=== PATIENT | female | born 1955 | race Caucasian/White ===

== ENCOUNTER → 2020-11-06 | Outpatient (CLI) | payer OTHER ==
--- NOTE | 2020-11-06 16:07 | RAD ---
EXAM: Bilateral knees, 3 views. HISTORY: Pain. COMPARISON: None. FINDINGS: 3 views of both knees are obtained. There is severe bilateral medial compartment joint spac e narrowing with subchondral sclerosis, subchondral cyst formation and marginal spurring. There is bi lateral genu varus. There is mild bilateral lateral and patellofemoral compartment spurring. There ar e small bilateral knee effusions. IMPRESSION: 1. Severe medial compartment predominant osteoarthritis of both knees with genu varus and small joint effusions. 2. No acute osseous finding. Electronically signed by: Elena Remy MD (11/06/2020 4:05 PM) [id number]
== END ==
LOC: RAD 15:38
PROVIDERS: ATTEND Physician Assistant
DX: M17.0 Bilateral primary osteoarthritis of knee (principal); M25.462 Effusion, left knee; M25.461 Effusion, right knee
CPT/HCPCS: 73560; 73565